=== PATIENT | female | born 1965 | race Caucasian/White ===

== ENCOUNTER 2019-06-28 17:18 | Outpatient (CLI) | payer OTHER, SELFPAY ==
--- NOTE | ~2019-06-28 | XR_ITS ---
EXAMINATION: XR chest 2V 06/28/2019 17:40 INDICATION: Cough and chest pain PROCEDURE: 2 view chest COMPARISON: No prior studies for comparison. FINDINGS: The lungs are clear. The cardiomediastinal silhouette is within normal limits. There are no pleural effusions. There is no pneumothorax suspected. IMPRESSION: 1: NO ACUTE CARDIOPULMONARY DISEASE. Reviewed, dictated and finalized at location A. EY COORDINATOR
== END 2019-06-28 17:19 | disposition home or self-care (01) ==
LOC: ANHIMG 17:27
PROVIDERS: PCP Family Medicine; Visit Provider Family Medicine
DX: R05 Cough (principal); R07.89 Other chest pain
CPT/HCPCS: 71046

== ENCOUNTER 2020-01-04 16:06 | Emergency (ER) | payer OTHER, SELFPAY ==
[2020-01-04 16:16] VITALS: PULSE 86; RESP 20; TEMP 36.5; O2SAT 100
--- NOTE | 2020-01-04 16:35 | ED.FEMALEGU ---
HPI - Female Genitourinary General Chief complaint: Urogenital-Female Stated complaint: uti Time Seen by Provider: 01/04/20 16:16 Source: patient and RN notes reviewed Mode of arrival: ambulatory Limitations: no limitations History of Present Illness HPI Narrative: Patient presents today complaining of a two-week history of intermittent dysuria. She was diagnosed with a UTI on 12/13/2019 by her AIR QUALITY CHEMIST, and placed on 3 days of Macrobid. Patient states the Macrobid caused a yeast infection for which she took 1 dose of fluconazole. States the Macrobid helped improve her symptoms for 2 to 3 days, but then they worsened again. Denies abdominal pain, fever, sweats or chills, back pain. She was notified that her urine culture was susceptible to Macrobid. She has not followed up with her AIR QUALITY CHEMIST when her symptoms returned. She has been occasionally taking Azo, which does help improve the dysuria symptoms. MD elicited complaint: dysuria Related Data Home Medications Medication Instructions Recorded Confirmed L norgest/e.estradiol-e.estrad 1 tablet PO DAILY 04/12/19 04/12/19 0.15 mg-30 mcg (84)/10 mcg(7) tabs,3mos ibuprofen 200 mg tablet 200 mg PO Q6H PRN 04/12/19 04/12/19 cetirizine 10 mg capsule 10 mg PO DAILY 10/22/19 famotidine 20 mg tablet 20 mg PO BID tablet 10/22/19 Allergies Allergy/AdvReac Type Severity Reaction Status Date / Time No Known Allergies Allergy Verified 10/22/19 14:22 Review of Systems Review of Systems: Narrative: CONSTITUTIONAL: Denies body aches, fever, chills, or sweats. EYES: Denies visual changes, redness, or discharge. ENT: Denies rhinorrhea, congestion, sore throat, or otalgia. CARDIOVASCULAR: Denies chest pain, palpitations, or edema. RESPIRATORY: Denies cough or dyspnea. GASTROINTESTINAL: Denies abdominal pain, nausea, vomiting, or diarrhea. GENITOURINARY: Denies hematuria. + Dysuria SKIN: Denies rash, itching, or wounds. MUSCULOSKELETAL: Denies back pain, joint pain, or myalgia. NEUROLOGIC: Denies headache, numbness, tingling, or weakness. PSYCH: Denies depression or anxiety. PMFSH Social History Social History Smoking status: Never smoker Second hand tobacco smoke exposure: No Alcohol intake: current Substance use: never Substance use type: does not use Gender identity (if verbalized by the patient): Female Spiritual care concerns: No Agree to blood products: Yes Comments At time of signature, I have reviewed and agree with nursing past medical, surgical, social and family history unless otherwise noted. Please see nursing chart for further information. There is no relevant family history pertinent to the presenting complaint Exam Narrative: Exam Narrative: GENERAL: Well-appearing, well-nourished, and in no acute distress. HEAD: Normocephalic, atraumatic. EYES: EOMI. No redness or drainage. Conjunctivae normal. ENT: Mucous membranes pink and moist. NECK: Normal AROM. CHEST: No respiratory distress. Clear to auscultation. HEART: Regular rate and rhythm. No murmur appreciated. Normal peripheral pulses. ABDOMEN: Soft, nontender, nondistended, normal active bowel sounds. -CVAT MUSCULOSKELETAL: No bony tenderness. EXTREMITIES: Normal range of motion. No edema. SKIN: Warm, dry, no rash. Capillary refill normal. Normal skin turgor. NEURO: No focal deficits. Alert and oriented x3. Gait steady. PSYCH: Normal affect. No signs of depression or anxiety. Course Vital Signs Vital signs: Vital Signs Temperature 97.7 F 01/04/20 16:16 Pulse Rate 86 01/04/20 16:16 Respiratory Rate 01/04/20 16:16 Pulse Oximetry 100 01/04/20 16:16 Temperature 97.7 F 01/04/20 16:16 Pulse Rate 86 01/04/20 16:16 Respiratory Rate 01/04/20 16:16 Blood Pressure 148/81 H 01/04/20 16:37 Pulse Oximetry 100 01/04/20 16:16 Reviewed. Pt has been instructed to follow up with her PCP regarding her e
[2020-01-04 16:37] VITALS: BP 148/81
== END 2020-01-04 16:44 | disposition home or self-care (01) ==
PROVIDERS: Emergency Provider Nurse Practitioner; PCP Family Medicine
DX: N30.01 Acute cystitis with hematuria (principal)
CPT/HCPCS: 81003; 87086; 87088; 99213; G0463

== ENCOUNTER 2020-02-21 17:05 | Outpatient (CLI) | payer OTHER, SELFPAY ==
--- NOTE | ~2020-02-21 | MM_ITS ---
EXAMINATION: MM screening che BI w celeste HISTORY: Screening TECHNIQUE: Craniocaudal and mediolateral oblique 3-D tomosynthesis images were obtained and synthetic 2-D images were generated. CAD analysis was submitted and interpreted. COMPARISON: Comparison to multiple prior studies sequentially, with oldest reviewed study dated 08/20. BREAST PARENCHYMAL COMPOSITION: The breasts are heterogeneously dense, which may obscure small masses . FINDINGS: There is no evidence of suspicious mass, calcification, or architectural distortion to sugg est malignancy in either breast. There has been no suspicious interval change. IMPRESSION: 1. No mammographic evidence of malignancy. 2. Recommend routine screening mammography in one year. BI-RADS Category 1: Negative Reviewed, dictated and finalized at location A.
== END 2020-02-21 17:06 | disposition home or self-care (01) ==
LOC: ANHIMG 17:09
PROVIDERS: PCP Family Medicine; Visit Provider Obstetrics & Gynecology Gynecology
DX: Z12.31 Encounter for screening mammogram for malignant neoplasm of breast (principal)
CPT/HCPCS: 77063; 77067

== ENCOUNTER 2020-03-02 15:13 | Emergency (ER) | payer OTHER, SELFPAY ==
[2020-03-02 15:21] VITALS: BP 146/83; PULSE 92; RESP 18; TEMP 36.8; O2SAT 100
--- NOTE | 2020-03-02 15:42 | ED.GENADULT ---
HPI - General Adult General Chief complaint: Urogenital-Female Stated complaint: uti Time Seen by Provider: 03/02/20 15:42 Source: patient and RN notes reviewed Mode of arrival: ambulatory Limitations: no limitations History of Present Illness HPI narrative: 54-year-old female presents with urinary complaints for 1 day. Dysuria consist of burning, frequency, and urgency. Ibuprofen with no relief. Denies fever or chills. No significant pelvic pain. No vaginal discharge.? No concerns for STDs. Exacerbating factors urinating.? Denies hematuria or vaginal bleeding. Denies being , LMP 01/26 due to birthcontrol.? No flank pain. Denies nausea, vomiting, and abdominal pain.? Tolerating liquids well.? Remains active. The patient reports she have not been diagnosed with COVID-19. The patient reports she is not waiting for the results of a COVID-19 lab test. The patient reports she do not have weakness or fatigue. The patient reports she do not have a new or worsening cough or shortness of breath. Denies chest pain. The patient reports she do not have any rhinorrhea, congestion, sore throat, loss of taste, and diarrhea. Denies recent traveling. Denies concerns for COVID-19 or exposures been home with limited outdoor exposure except for essential household needs, work, and return home. At this time, patient is not suspected of having COVID-19. Some parts of this dictation were generated by voice recognition software and may contain typographical and/or grammatical inaccuracies. Related Data Home Medications Medication Instructions Recorded Confirmed L norgest/E estradiol-E estrad 1 tablet PO DAILY 04/12/19 03/02/20 0.15 mg-30 mcg (84)/10 mcg(7) tabs,3mos cetirizine 10 mg capsule 10 mg PO DAILY 10/22/19 03/02/20 Allergies Allergy/AdvReac Type Severity Reaction Status Date / Time No Known Allergies Allergy Verified 03/02/20 15:18 Review of Systems Review of Systems: Narrative: CONSTITUTIONAL: Denies fever, chills, sweats. EYES: Denies visual changes, redness, discharge. ENT: Denies rhinorrhea, congestion, sore throat, otalgia. CARDIOVASCULAR: Denies chest pain, palpitations, edema. RESPIRATORY: Denies dyspnea, wheezing, cough. GASTROINTESTINAL: Denies abdominal pain, nausea, vomiting, diarrhea. GENITOURINARY: Complains of dysuria (burning, frequency, and urgency). Denies hematuria, abnormal discharge. SKIN: Denies rash or itching. MUSCULOSKELETAL: Denies acute back pain, joint pain, or myalgia. NEUROLOGIC: Denies numbness or focal weakness. PSYCHIATRIC: Denies anxiety or depression. All systems reviewed & are unremarkable except as noted in HPI and below. [facility] Past Medical History Medical History (Updated 03/02/20 @ 16:15 by RONNIE Forde) Allergic rhinitis delivery delivered GERD (gastroesophageal reflux disease) Menopause syndrome Reactive airway disease Surgical History Surgical History History of History of tonsillectomy Family History Family History Mother Carcinoma of colon Father CHF (congestive heart failure) Hypertension Father Hypertension Mother Carcinoma of colon Sibling Family history of malignant neoplasm of kidney Social History Social History (Updated 03/02/20 @ 16:16 by RONNIE Forde) Smoking status: Former smoker Tobacco type: cigarettes Second hand tobacco smoke exposure: No Smoking end date: 05/09/91 Alcohol intake: current Substance use: never Substance use type: does not use Living arrangements: with family Occupation/Education: occupation Gender identity (if verbalized by the patient): Female Sexual Orientation (if Verbalized by the Patient): Straight or Heterosexual Spiritual care concerns: No Agree to blood products: Yes Comments At time of signature, agree with nurse pas
== END 2020-03-02 16:05 | disposition home or self-care (01) ==
PROVIDERS: Emergency Provider Nurse Practitioner Family; PCP Family Medicine
DX: R30.0 Dysuria (principal); Z87.891 Personal history of nicotine dependence; K21.9 Gastro-esophageal reflux disease without esophagitis
CPT/HCPCS: 81003; 87077; 87086; 87088; 87186; 99213; G0463

== ENCOUNTER 2021-02-25 15:47 | Outpatient (CLI) | payer OTHER, SELFPAY ==
--- NOTE | ~2021-02-25 | MM_ITS ---
EXAMINATION: MM screening che BI w celeste HISTORY: Screening mammogram TECHNIQUE: Craniocaudal and mediolateral oblique 3-D tomosynthesis images were obtained and synthetic 2-D images were generated. CAD analysis was submitted and interpreted. COMPARISON: 02/21/2020 bilateral screening mammogram 01/29/2019 diagnostic right mammogram 01/17/2019 bilateral digital screening mammogram BREAST PARENCHYMAL COMPOSITION: The breasts are heterogeneously dense, which may obscure small masses . FINDINGS: Occasional benign calcifications are again noted. There is no evidence of suspicious mass, calcification, or architectural distortion to suggest malignancy in either breast. There has been no suspicious interval change. IMPRESSION: 1. No mammographic evidence of malignancy. 2. Recommend routine screening mammography in one year. BI-RADS Category 2: Benign finding(s). Reviewed, dictated and finalized at location A.
== END 2021-02-25 15:48 | disposition home or self-care (01) ==
PROVIDERS: PCP Family Medicine; Visit Provider Obstetrics & Gynecology
DX: Z12.31 Encounter for screening mammogram for malignant neoplasm of breast (principal)
CPT/HCPCS: 77063; 77067

== ENCOUNTER → 2021-07-25 08:43 | Outpatient (CLI) | payer OTHER, SELFPAY ==
--- NOTE | ~2021-07-25 | US_ITS ---
US abdomen complete EXAMINATION: US Abdomen Complete INDICATION: Abnormal liver function tests PROCEDURE: Realtime High Resolution abdomen ultrasound. COMPARISON: No prior studies for comparison FINDINGS: There are gallstones. No pericholecystic fluid. Common bile duct measures 4 mm. Liver echotexture is increased, consistent with fatty infiltration.. Pancreas within normal limits. Pancreatic tail is obscured by bowel gas. Spleen is unremarkeable. Renal echotexture is within norm al limits bilaterally without hydronephrosis, contour deforming mass or renal stone. Right kidney enedelia sures 10.3 cm. Left kidney measures 11.1 cm. Visualized aspects of the aorta and IVC are within normal limits. Portal vein is patent. No sonograph ic Bhardwaj's sign indicated by the technologist. IMPRESSION: 1: Cholelithiasis. 2: Hepatic steatosis. Reviewed, dictated and finalized at location A.
== END ==
PROVIDERS: PCP Family Medicine; Visit Provider Nurse Practitioner
DX: R74.8 Abnormal levels of other serum enzymes (principal); K80.20 Calculus of gallbladder without cholecystitis without obstruction; K76.0 Fatty (change of) liver, not elsewhere classified
CPT/HCPCS: 76700

== ENCOUNTER 2022-01-19 08:59 | Outpatient (CLI) | payer OTHER, SELFPAY ==
[2022-01-19 18:40] LABS: Basophils Percent Auto 0.5 % (0.2-1.2); Eosinophils Absolute Auto 0.2 K/mm3 (0-0.3); Eosinophils Percent Auto 2.5 % (0-4.4); Hematocrit 44.5 % (37.0-47.0); Hemoglobin 14.2 g/dL (12.0-15.0); Immature Granulocyte Absolute 0.01 K/mm3 (0.00-0.031); Immature Granulocyte Percent A 0.2 % (0-0.5); Lymphocytes Absolute Auto 2.03 K/mm3 (0.9-3.2); Lymphocytes Percent Auto 33.6 % (18.3-44.2); Mean Corpuscular HGB Conc 31.9 g/dl (32-36); Mean Corpuscular Hemoglobin 32.5 pg (26-34); Mean Corpuscular Volume 101.8 fl (80-100); Mean Platelet Volume 10.6 fl (7.4-10.4); Monocytes Absolute Auto 0.7 K/mm3 (0.1-0.6); Monocytes Percent Auto 11.6 % (2.6-8.5); Neutrophils Absolute Auto 3.1 K/mm3 (1.3-6.7); Neutrophils Percent Auto 51.6 % (45.5-73.1); Platelet Count Result 318 k/mm3 (150-375); Red Blood Count 4.37 M/mm3 (4.2-5.4); Red Cell Distribution Width 12.6 % (11.5-14.5); White Blood Count 6.1 K/mm3 (4.5-10.0)
[2022-01-19 19:05] LABS: Alanine Aminotransferase 56 U/L (6-35); Albumin Level 4.2 g/dL (3.5-5.1); Alkaline Phosphatase 92 U/L (38-126); Anion Gap 14 mmol/L (8-16); Aspartate Amino Transferase 54 U/L (14-36); Bilirubin,Total 0.4 mg/dL (0.2-1.3); Blood Urea Nitrogen 15 mg/dL (7-17); Calcium 8.8 mg/dL (8.4-10.2); Carbon Dioxide 28 mmol/L (22-30); Chloride 102 mmol/L (98-107); Cholesterol 172 mg/dL (0-200); Estimated Glomerular Filt Rate > 60; Glucose 82 mg/dL (65-110); HDL Direct 63 mg/dL; Potassium 3.3 mmol/L (3.4-5.0); Sodium 144 mmol/L (137-145); Triglycerides 86 mg/dL (<150)
[2022-01-19 19:16] LABS: LDL Cholesterol Direct 75 mg/dL
== END 2022-01-19 09:00 | disposition home or self-care (01) ==
LOC: ANHGOSHLAB 09:01
PROVIDERS: PCP Family Medicine; Visit Provider Nurse Practitioner Family
DX: E03.9 Hypothyroidism, unspecified (principal); I10 Essential (primary) hypertension; E78.5 Hyperlipidemia, unspecified
CPT/HCPCS: 36415; 80053; 80061; 84443; 85025

== ENCOUNTER → 2022-03-31 08:44 | Outpatient (CLI) | payer OTHER, SELFPAY ==
--- NOTE | ~2022-03-31 | MM_ITS ---
EXAMINATION: MM screening [facility] BI w celeste HISTORY: Screening mammogram TECHNIQUE: Craniocaudal and mediolateral oblique 3-D tomosynthesis images were obtained and synthetic 2-D images were generated. CAD analysis was submitted and interpreted. COMPARISON: 02/25/2021, 02/21/2020 bilateral screening mammogram examinations 01/29/2019 diagnostic right mammogram 10/24/2017 [facility] from bilateral screening mammogram BREAST PARENCHYMAL COMPOSITION: There are scattered areas of fibroglandular density. FINDINGS: Cluster grouped microcalcifications are noted at mid to posterior depth in the upper inner right breast. Diagnostic right mammogram with magnification views and ultrasound examination are abel mmended. Minimal benign calcification of the breasts is noted otherwise. Otherwise there is no evidence of suspicious mass, calcification, or architectural distortion to sug gest malignancy in either breast. There has been no other suspicious interval change. IMPRESSION: 1. Cluster grouped microcalcifications at mid to posterior depth in the upper inner right breast 2. Diagnostic right mammogram and right breast ultrasound examination are recommended BI-RADS Category 0: Incomplete: Needs additional imaging evaluation. Reviewed, dictated and finalized at location A. EW COORDINATOR IMPRESSION: 1. Cluster grouped microcalcifications at mid to posterior depth in the upper i nner right breast 2. Diagnostic right mammogram and right breast ultrasound examination are recom mended BI-RADS Category 0: Incomplete: Needs additional imaging evaluation.
== END ==
PROVIDERS: PCP Family Medicine; Visit Provider Nurse Practitioner Family
DX: Z12.31 Encounter for screening mammogram for malignant neoplasm of breast (principal); R92.8 Other abnormal and inconclusive findings on diagnostic imaging of breast
CPT/HCPCS: 77063; 77067

== ENCOUNTER → 2022-04-22 07:35 | Outpatient (CLI) | payer OTHER, SELFPAY ==
--- NOTE | ~2022-04-22 | MM_ITS ---
EXAMINATION: MM diagnostic mammo unilat RT HISTORY: Follow-up right breast calcifications TECHNIQUE: Additional 3-D tomosynthesis images of the right breast were performed and synthetic 2-D i mages were generated. CAD analysis was submitted and interpreted. COMPARISON: Comparison to multiple prior studies sequentially, with oldest reviewed study dated 01/29. BREAST PARENCHYMAL COMPOSITION: The breasts are heterogeneously dense, which may obscure small masses . FINDINGS: The calcifications in the upper inner quadrant of the right breast appears stable dating ba ck to 01/29/2019. These calcifications appear to layer on the medial lateral view as seen on the prior examination, consistent with benign milk of calcium. No suspicious abnormalities are identified. IMPRESSION: 1. No evidence for malignancy in the right breast. Benign findings. 2. Routine yearly screening mammogram and regular clinical breast examination are recommended. BI-RADS Category 2: Benign finding(s). Reviewed, dictated and finalized at location B. GER PROCESS IMPROVEMENT IMPRESSION: 1. No evidence for malignancy in the right breast. Benign findings. 2. Routine yearly screening mammogram and regular clinical breast examination a re recommended. BI-RADS Category 2: Benign finding(s).
== END ==
PROVIDERS: PCP Family Medicine; Visit Provider Family Medicine
DX: R92.8 Other abnormal and inconclusive findings on diagnostic imaging of breast (principal)
CPT/HCPCS: 77065

== ENCOUNTER 2022-07-20 08:49 | Outpatient (CLI) | payer OTHER, SELFPAY ==
[2022-07-20 12:14] LABS: Kit Draw Collected
== END 2022-07-20 08:50 | disposition home or self-care (01) ==
LOC: ANHGOSHLAB 08:50
PROVIDERS: PCP Family Medicine; Visit Provider Nurse Practitioner Family
DX: E03.9 Hypothyroidism, unspecified (principal); R74.8 Abnormal levels of other serum enzymes
CPT/HCPCS: 36415

== ENCOUNTER 2023-01-25 08:49 | Outpatient (CLI) | payer OTHER, SELFPAY ==
[2023-01-25 17:02] LABS: Alanine Aminotransferase 45 U/L (6-35); Albumin Level 4.2 g/dL (3.5-5.1); Alkaline Phosphatase 116 U/L (38-126); Anion Gap 5 mmol/L (8-16); Aspartate Amino Transferase 43 U/L (14-36); Bilirubin,Total 0.7 mg/dL (0.2-1.3); Blood Urea Nitrogen 16 mg/dL (7-17); Calcium 8.8 mg/dL (8.4-10.2); Carbon Dioxide 29 mmol/L (22-30); Chloride 104 mmol/L (98-107); Estimated Glomerular Filt Rate > 60; Glucose 65 mg/dL (65-110); Potassium 3.7 mmol/L (3.4-5.0); Sodium 138 mmol/L (137-145)
== END 2023-01-25 08:50 | disposition home or self-care (01) ==
LOC: ANHGOSHLAB 08:51
PROVIDERS: PCP Family Medicine; Visit Provider Family Medicine
DX: E78.5 Hyperlipidemia, unspecified (principal); E03.9 Hypothyroidism, unspecified; Z79.899 Other long term (current) drug therapy
CPT/HCPCS: 36415; 80053; 84443

== ENCOUNTER 2023-04-15 07:50 | Outpatient (CLI) | payer OTHER, SELFPAY ==
--- NOTE | ~2023-04-15 | MM_ITS ---
EXAMINATION: MM screening che BI w celeste HISTORY: Screening mammogram TECHNIQUE: Craniocaudal and mediolateral oblique 3-D tomosynthesis images were obtained and synthetic 2-D images were generated. CAD analysis was submitted and interpreted. COMPARISON: 04/22/2022, 03/31/2022, 02/25/2021, 02/21/2020 BREAST PARENCHYMAL COMPOSITION: The breasts are heterogeneously dense, which may obscure small masses . FINDINGS: Scattered benign-appearing calcifications are present. No suspicious mass, calcification, o r architectural distortion are identified in either breast to suggest malignancy. There has been no s uspicious interval change. IMPRESSION: 1. No mammographic evidence of malignancy. 2. Recommend routine screening mammography in one year. BI-RADS Category 2: Benign finding(s). Reviewed, dictated and finalized at location A. NTER MACHINE JOINER
== END 2023-04-15 07:51 | disposition home or self-care (01) ==
LOC: ANHIMG 07:52
PROVIDERS: PCP Family Medicine; Visit Provider Obstetrics & Gynecology
DX: Z12.31 Encounter for screening mammogram for malignant neoplasm of breast (principal)
CPT/HCPCS: 77063; 77067

== ENCOUNTER 2023-07-25 08:20 | Outpatient (CLI) | payer OTHER, SELFPAY ==
[2023-07-25 12:50] LABS: Basophils Percent Auto 0.4 % (0.2-1.2); Eosinophils Absolute Auto 0.1 K/mm3 (0-0.3); Hematocrit 46.2 % (37.0-47.0); Hemoglobin 14.7 g/dL (12.0-15.0); Immature Granulocyte Absolute 0.01 K/mm3 (0.00-0.031); Immature Granulocyte Percent A 0.2 % (0-0.5); Lymphocytes Percent Auto 36.7 % (18.3-44.2); Mean Corpuscular HGB Conc 31.8 g/dl (32-36); Mean Corpuscular Hemoglobin 32.5 pg (26-34); Mean Corpuscular Volume 102.2 fl (80-100); Mean Platelet Volume 10.2 fl (7.4-10.4); Monocytes Absolute Auto 0.5 K/mm3 (0.1-0.6); Monocytes Percent Auto 9.6 % (2.6-8.5); Neutrophils Absolute Auto 2.5 K/mm3 (1.3-6.7); Neutrophils Percent Auto 51.1 % (45.5-73.1); Platelet Count Result 317 k/mm3 (150-375); Red Blood Count 4.52 M/mm3 (4.2-5.4); Red Cell Distribution Width 12.7 % (11.5-14.5); White Blood Count 4.9 K/mm3 (4.5-10.0)
[2023-07-25 13:19] LABS: Alanine Aminotransferase 86 U/L (6-35); Albumin Level 4.1 g/dL (3.5-5.1); Alkaline Phosphatase 121 U/L (38-126); Anion Gap 4 mmol/L (8-16); Aspartate Amino Transferase 107 U/L (14-36); Bilirubin,Total 0.4 mg/dL (0.2-1.3); Blood Urea Nitrogen 19 mg/dL (7-17); Calcium 9.1 mg/dL (8.4-10.2); Carbon Dioxide 30 mmol/L (22-30); Chloride 107 mmol/L (98-107); Cholesterol 151 mg/dL (0-200); Estimated Glomerular Filt Rate > 60; Glucose 84 mg/dL (65-110); HDL Direct 65 mg/dL; Potassium 3.7 mmol/L (3.4-5.0); Sodium 141 mmol/L (137-145); Triglycerides 70 mg/dL (<150)
[2023-07-25 14:03] LABS: LDL Cholesterol Direct 71 mg/dL
[2023-07-28 23:15] LABS: Vitamin D 1,25 (OH)2 Total 32 pg/mL (18-72); Vitamin D2 1,25 (OH)2 <8 pg/mL; Vitamin D3 1,25 (OH)2 32 pg/mL
== END 2023-07-25 08:21 | disposition home or self-care (01) ==
LOC: ANHGOSHLAB 08:21
PROVIDERS: PCP Family Medicine; Visit Provider Nurse Practitioner Family
DX: E55.9 Vitamin D deficiency, unspecified (principal); I10 Essential (primary) hypertension
CPT/HCPCS: 36415; 80053; 80061; 82652; 84443; 85025

== ENCOUNTER 2023-10-20 16:03 | Outpatient (CLI) | payer OTHER, SELFPAY ==
[2023-10-20 19:25] LABS: Alanine Aminotransferase 41 U/L (6-35); Albumin Level 3.9 g/dL (3.5-5.1); Alkaline Phosphatase 127 U/L (38-126); Anion Gap 2 mmol/L (4-12); Aspartate Amino Transferase 38 U/L (14-36); Bilirubin,Total 0.4 mg/dL (0.2-1.3); Blood Urea Nitrogen 13 mg/dL (7-17); Carbon Dioxide 31 mmol/L (22-30); Chloride 107 mmol/L (98-107); Estimated Glomerular Filt Rate > 60; Glucose 83 mg/dL (65-110); Potassium 4.2 mmol/L (3.4-5.0); Sodium 140 mmol/L (137-145)
== END 2023-10-20 16:04 | disposition home or self-care (01) ==
LOC: ANHGOSHLAB 16:04
PROVIDERS: PCP Family Medicine; Visit Provider Nurse Practitioner Family
DX: R74.8 Abnormal levels of other serum enzymes (principal); K76.0 Fatty (change of) liver, not elsewhere classified
CPT/HCPCS: 36415; 80053

== ENCOUNTER 2024-01-23 08:29 | Outpatient (CLI) | payer OTHER, SELFPAY ==
[2024-01-23 13:14] LABS: Alanine Aminotransferase 42 U/L (6-35); Albumin Level 4.1 g/dL (3.5-5.1); Alkaline Phosphatase 113 U/L (38-126); Anion Gap 8 mmol/L (4-12); Aspartate Amino Transferase 75 U/L (14-36); Bilirubin,Total 0.4 mg/dL (0.2-1.3); Blood Urea Nitrogen 22 mg/dL (7-17); Calcium 9.3 mg/dL (8.4-10.2); Carbon Dioxide 30 mmol/L (22-30); Chloride 101 mmol/L (98-107); Estimated Glomerular Filt Rate > 60; Glucose 78 mg/dL (65-110); Potassium 3.8 mmol/L (3.4-5.0); Sodium 139 mmol/L (137-145)
[2024-01-23 13:55] LABS: Free T4 Free Thyroxine 1.08 ng/mL (0.78-2.19)
== END 2024-01-23 08:30 | disposition home or self-care (01) ==
LOC: ANHGOSHLAB 08:31
PROVIDERS: PCP Family Medicine; Visit Provider Nurse Practitioner Family
DX: R74.8 Abnormal levels of other serum enzymes (principal); E03.9 Hypothyroidism, unspecified
CPT/HCPCS: 36415; 80053; 84439; 84443

== ENCOUNTER 2024-05-29 16:15 | Outpatient (CLI) | payer OTHER, SELFPAY ==
--- NOTE | ~2024-05-29 | MM_ITS ---
EXAMINATION: MM screening [facility] BI w celeste HISTORY: Screening TECHNIQUE: Craniocaudal and mediolateral oblique 3-D tomosynthesis images were obtained and synthetic 2-D images were generated. CAD analysis was submitted and interpreted. COMPARISON: Comparison to multiple prior studies sequentially, with oldest reviewed study dated 01/29. BREAST PARENCHYMAL COMPOSITION: Not dense: There are scattered areas of fibroglandular density. FINDINGS: There is no evidence of suspicious mass, calcification, or architectural distortion to sugg est malignancy in either breast. There has been no suspicious interval change. IMPRESSION: 1. No mammographic evidence of malignancy. 2. Recommend routine screening mammography in one year. BI-RADS Category 1: Negative Reviewed, dictated and finalized at location A. TYPER
--- OUTSIDE RECORDS SUMMARY | 2024-05-31 20:01 | XMS_ITS | Clinical Summary ---
Author Organization [facility] Address [address] [place] [address] Phone Care Team Providers Care Web Analytics Developer Name Role Phone Barbara Birch MD Unavailable Unavailable Allergies No known active allergies Medications AMETHIA 0.15-0.03 &0.01 MG Tablet TK 1 T PO QD 1 8 Active SUMATRIPTAN NA by Nasal route. Active Multiple Vitamins-Minerals (MULTIVITAMIN PO) Take by mouth. Active ofloxacin (OCUFLOX) 0.3 % SolutionIndications :Acute conjunctivitis of both eyes, unspecified acute conjunctivitis type Place 1 Drop in affected eye(s) 4 times daily. 5 mL 9 Active Immunizations Immunization Administration Dates Next Due TD VACCINE 12/01/2006 Family History Medical History Relation Name Comments No Known Problems Father Colon Cancer Mother Relation Name Status Comments Father Mother Social History Tobacco Use Types Packs/Day Years Used Date Smoking Tobacco: Former Smokeless Tobacco: Never Alcohol Use Standard Drinks/Week Comments No 0 (1 standard drink = 0.6 oz pur e alcohol) PHQ-2 Answer Date Recorded PHQ-2 Score 0 01/20/2019 Comments No Sex and Gender Information Value Date Recorded Sex Assigned at Not on file Legal Sex Female 11:52 PM CDT Gender Identity Not on file Sexual Orientation Not on file Last Filed Vital Signs Vital Sign Reading Time Taken Comments Blood Pressure 138/79 06/12/2018 9:47 AM GUARD ENTRANCE REGISTRAR Pulse 112 06/12/2018 9:47 AM GUARD ENTRANCE REGISTRAR Temperature 36.6 ??C (97.8 ??F) 06/12/2018 9:47 AM CS T Respiratory Rate 16 06/12/2018 9:47 AM GUARD ENTRANCE REGISTRAR Oxygen Saturation 99% 06/12/2018 9:47 AM GUARD ENTRANCE REGISTRAR Inhaled Oxygen Concentration - - Weight 76.7 kg (169 lb) 06/12/2018 9:47 AM GUARD ENTRANCE REGISTRAR Height 165.1 cm (5' 5 ) 06/12/2018 9:47 AM GUARD ENTRANCE REGISTRAR Body Mass Index 28.12 06/12/2018 9:47 AM GUARD ENTRANCE REGISTRAR Plan of Treatment Health Maintenance Due Date Last Done Comments Hepatitis C Virus (HCV) Screening 1967 TdaP Immunization 1967 Hepatitis B Immunization (1 of 3 - 19+ 3-dose series) 1986 HPV/Cotest 1997 Cologuard 2017 Immunochemical Fecal Occult Blood 2017 Pneumococcal Immunization (5 0+ years) (1 of 1 - PCV) 2017 Zoster Immunization (1 of 2) 2017 Mammogram 10/25/2019 10/24/2017 Cervical Cancer Screening (CCS) 09/27/2020 Pap Smear 09/27/2020 09/27/2017 Influenza Immunization (#1) 2024 SARS-COV-2 Immunization ( season) 2024 03/20/2021, 07/11/2020 Colonoscopy 04/06/2028 04/06/2018 Colorectal Cancer Screening 04/06/2028 Respiratory Syncytial Virus (RSV) Immunization (Adult) (1 - 1-dose 75+ series) 2042 04/06/2018 Meningococcal Immunization (ACWY) Aged Out No longer eligible b ased on patient's age to complete this topic Pneumococcal Immunization Combined Aged Out No longer eligible b ased on patient's age to complete this topic Rotavirus Immunization Aged Out No lo nger eligible based on patient's age to complete this topic Procedures Procedure Name Priority Date/Time Associated Diagnosis Comments LU SCREENING BILATERAL DIGI CHENG W CAD Routine 10/24/2017 PATHOLOGY CYTOLOGY VEHICLE MAINTENANCE TECHNICIAN Routine 09/27/2017 from Last 3 Months or Most Recently Relevant to Health Maintenance Results * LU SCREENING BILATERAL DIGITAL W CAD (10/24/2017) Anatomical Region Laterality Modality breast Bilateral Mammography Celena Montana MD IMG MAMMO ORDERABLES Final Res ult * PATHOLOGY CYTOLOGY VEHICLE MAINTENANCE TECHNICIAN (09/27/2017) Specimen of unknown material (specimen) us Barbara Birch MD PATHOLOGY/CYTOLOGY ORDERABLES Final Result from Last 3 Months or Most Recently Relevant to Health Maintenance Care Teams Web Analytics Developer Relationship Specialty Start Date End Date Barbara Birch MD Consulting Physician Obstetrics & Gynecology 06/12/18
--- OUTSIDE RECORDS SUMMARY | 2024-05-31 20:01 | XMS_ITS | Continuity of Care Document ---
Author Organization [facility] Address [address] [facility] [address] [place] [address] Phone Care Team Providers Care Milk Hauler Name Role Phone Yomi Zamora MD Unavailable Unavailable Medications Medication Instructions Dosage Effective Dates (start - stop) Status Comments Zanaflex 4 mg tablet take 1 tablet by or al route every night at bedtime - Active Advance Directives Directive Yes / No Effective Date File Name No Information Encounters Encounter Description Practice Location Reason(s) For Visit Diagnoses Date Provider Providers Copied on Encounter [facility], [address], [facility], [phone] [facility] [address] No Information 4 Noah Celaya. [address] [place] [address], [id number] . tel: [phone] [facility], [address] [place] [address], [facility], tel:[phone] [facility] [address] No Information 3 Noah Celaya. [address] [place] [address], [id number] . tel: [phone] Family History Family Member Type Diagnosis Age At Onset No Information Payers Payer name Insurance type Covered libertarian ID Authoriza tion(s) No Information Social History [...]
== END 2024-05-29 16:16 | disposition home or self-care (01) ==
PROVIDERS: PCP Family Medicine; Visit Provider Nurse Practitioner Family
DX: Z12.31 Encounter for screening mammogram for malignant neoplasm of breast (principal)
CPT/HCPCS: 77063; 77067

== ENCOUNTER 2024-08-13 08:37 | Outpatient (CLI) | payer OTHER, SELFPAY ==
--- OUTSIDE RECORDS SUMMARY | 2024-08-13 08:58 | XMS_ITS | Continuity of Care Document ---
Author Organization [facility] Address [address] [facility] [address] [place] [address] Phone Care Team Providers Care Dishroom Attendant Name Role Phone Yomi Zamora MD Unavailable Unavailable Medications Medication Instructions Dosage Effective Dates (start - stop) Status Comments Zanaflex 4 mg tablet take 1 tablet by or al route every night at bedtime - Active Advance Directives Directive Yes / No Effective Date File Name No Information Encounters Encounter Description Practice Location Reason(s) For Visit Diagnoses Date Provider Providers Copied on Encounter [facility], [address], [facility], [phone] [facility] [address] No Information 4 Noah Celaya. [address] [place] [address], [id number] . tel: [phone] [facility], [address] [place] [address], [facility], tel:[phone] [facility] [address] No Information 3 Noah Celaya. [address] [place] [address], [id number] . tel: [phone] Family History Family Member Type Diagnosis Age [...]
--- OUTSIDE RECORDS SUMMARY | 2024-08-13 08:58 | XMS_ITS | Clinical Summary ---
Author Organization [facility] Address [address] [place] [address] Phone Care Team Providers Care Scene Shifter Name Role Phone Barbara Birch MD Unavailable [...] Comments Blood Pressure 138/79 06/12/2018 9:47 AM COMMERCIAL LITIGATION ASSOCIATE Pulse 112 06/12/2018 9:47 AM COMMERCIAL LITIGATION ASSOCIATE Temperature 36.6 C (97.8 F) 06/12/2018 9:47 AM COMMERCIAL LITIGATION ASSOCIATE Respiratory Rate 16 06/12/2018 9:47 AM COMMERCIAL LITIGATION ASSOCIATE Oxygen Saturation 99% 06/12/2018 9:47 AM COMMERCIAL LITIGATION ASSOCIATE Inhaled Oxygen Concentration - - Weight 76.7 kg (169 lb) 06/12/2018 9:47 AM COMMERCIAL LITIGATION ASSOCIATE Height 165.1 cm (5' 5 ) 06/12/2018 9:47 AM COMMERCIAL LITIGATION ASSOCIATE Body Mass Index 28.12 06/12/2018 9:47 AM COMMERCIAL LITIGATION ASSOCIATE Plan of Treatment Health Maintenance Due Date Last Done Comments Hepatitis C Virus (HCV) Screening 1965 TdaP Immunization 1965 Hepatitis B Immunization (1 of 3 - 19+ 3-dose series) 1986 Cologuard 2017 Immunochemical Fecal Occult Blood 2017 Pneumococcal Immunization (5 0+ years) (1 of 1 - PCV) 2017 Zoster Immunization (1 of 2) 2017 Influenza Immunization (#1) 2024 SARS-COV-2 Immunization ( - season) 2024 03/20/2021, 07/11/2020 Colonoscopy 04/06/2028 04/06/2018 Colorectal Cancer Screening 04/06/2028 Respiratory Syncytial Virus (RSV) Immunization (Adult) (1 - 1-dose 75+ series) 2042 04/06/2018 Cervical Cancer Screening (CCS) Discontinued Pap Smear Discontinued 09/27/2017 Mammogram Discontinued 10/24/2017 HPV/Cotest Discontinued Meningococcal Immunization (ACWY) Aged Out No longer eligible based on patient's age to complete this topic Rotavirus Immunization Aged Out No lo nger eligible based on patient's age to complete this topic Procedures Procedure Name Priority Date/Time Associated Diagnosis Comments LU SCREENING BILATERAL DIGI CHENG W CAD Routine 10/24/2017 PATHOLOGY CYTOLOGY DOUBLE NEEDLE OPERATOR LOCKSTITCH Routine 09/27/2017 from Last 3 Months or Most Recently Relevant to Health Maintenance Results * LU SCREENING BILATERAL DIGITAL W CAD (10/24/2017) Anatomical Region Laterality Modality breast Bilateral Mammography Celena Montana MD IMG MAMMO ORDERABLES Final Res ult * PATHOLOGY CYTOLOGY DOUBLE NEEDLE OPERATOR LOCKSTITCH (09/27/2017) Specimen of unknown material (specimen) us Barbara Birch MD PATHOLOGY/CYTOLOGY ORDERABLES Final Result from Last 3 Months or Most Recently Relevant to Health Maintenance Care Teams Scene Shifter Relationship Specialty Start Date End Date Barbara Birch MD Consulting Physician Obstetrics & Gynecology 06/12/18
[2024-08-13 11:57] LABS: Basophils Percent Auto 0.7 % (0.2-1.2); Eosinophils Absolute Auto 0.2 K/mm3 (0-0.3); Eosinophils Percent Auto 3.2 % (0-4.4); Hematocrit 46.7 % (37.0-47.0); Hemoglobin 14.8 g/dL (12.0-15.0); Immature Granulocyte Absolute 0.01 K/mm3 (0.00-0.031); Immature Granulocyte Percent A 0.2 % (0-0.5); Lymphocytes Absolute Auto 2.15 K/mm3 (0.9-3.2); Lymphocytes Percent Auto 37.9 % (18.3-44.2); Mean Corpuscular HGB Conc 31.7 g/dl (32-36); Mean Corpuscular Hemoglobin 32.6 pg (26-34); Mean Corpuscular Volume 102.9 fl (80-100); Mean Platelet Volume 10.9 fl (7.4-10.4); Monocytes Absolute Auto 0.5 K/mm3 (0.1-0.6); Monocytes Percent Auto 9.2 % (2.6-8.5); Neutrophils Absolute Auto 2.8 K/mm3 (1.3-6.7); Neutrophils Percent Auto 48.8 % (45.5-73.1); Platelet Count Result 317 k/mm3 (150-375); Red Blood Count 4.54 M/mm3 (4.2-5.4); Red Cell Distribution Width 12.4 % (11.5-14.5); White Blood Count 5.7 K/mm3 (4.5-10.0)
[2024-08-13 13:05] LABS: Vitamin D 25 Hydroxy 40.1 ng/mL
[2024-08-13 13:19] LABS: Alanine Aminotransferase 36 U/L (6-35); Albumin Level 4.3 g/dL (3.5-5.1); Alkaline Phosphatase 110 U/L (38-126); Anion Gap 9 mmol/L (4-12); Aspartate Amino Transferase 46 U/L (14-36); Bilirubin,Total 0.5 mg/dL (0.2-1.3); Blood Urea Nitrogen 19 mg/dL (7-17); Calcium 9.1 mg/dL (8.4-10.2); Carbon Dioxide 27 mmol/L (22-30); Chloride 104 mmol/L (98-107); Cholesterol 159 mg/dL (0-200); Estimated Glomerular Filt Rate > 60; Glucose 81 mg/dL (65-110); HDL Direct 64 mg/dL; LDL Cholesterol Direct 66 mg/dL; Potassium 4.2 mmol/L (3.4-5.0); Sodium 140 mmol/L (137-145); Triglycerides 92 mg/dL (<150)
== END 2024-08-13 08:38 | disposition home or self-care (01) ==
LOC: ANHGOSHLAB 08:37
PROVIDERS: PCP Family Medicine; Visit Provider Nurse Practitioner Family
DX: E78.5 Hyperlipidemia, unspecified (principal); E03.9 Hypothyroidism, unspecified; E55.9 Vitamin D deficiency, unspecified; I10 Essential (primary) hypertension
CPT/HCPCS: 36415; 80053; 80061; 82306; 84439; 84443; 85025

== ENCOUNTER 2024-11-15 08:15 | Outpatient (CLI) | payer OTHER, SELFPAY ==
--- NOTE | ~2024-11-15 | MMUS_ITS ---
EXAMINATION: MM diagnostic che RT w celeste, US breast RT limited HISTORY: Right breast lump TECHNIQUE: 3-D tomosynthesis images of the right breast were performed and synthetic 2-D images were generated. CAD analysis was submitted and interpreted. High resolution limited right breast ultrasoun d was performed. COMPARISON: None BREAST PARENCHYMAL COMPOSITION:Not Dense. There are scattered areas of fibroglandular density. FINDINGS: MAMMOGRAPHIC FINDINGS: Parenchymal pattern of the right breast is unremarkable. No suspicious mass lesion or distortion seen . No suspicious microcalcification. ULTRASOUND: At the 4:00-5:00 position right breast, 6 cm from nipple, there is a elongated hypoechoic structure w ithin the dermis, most compatible with a probable sebaceous cyst, measuring up to 19 x 10 x 3 mm in e xtent. IMPRESSION: No evidence for malignancy. Findings compatible with sebaceous cyst at the 4:00-5:00 position right breast, as detailed above. BI-RADS Category 2: Benign finding(s). Reviewed, dictated and finalized at location . IMPRESSION: No evidence for malignancy. Findings compatible with sebaceous cyst at the 4:00-5:00 position right breast, as detailed above. BI-RADS Category 2: Benign finding(s).
--- OUTSIDE RECORDS SUMMARY | 2024-11-15 08:24 | XMS_ITS | Continuity of Care Document ---
Author Organization [facility] Address [address] [facility] [address] [place] [address] Phone Care Team Providers Care Nail Specialist Name Role Phone Yomi Zamora MD Unavailable Unavailable Medications Medication Instructions Dosage Effective Dates (start - stop) Status Comments Zanaflex 4 mg tablet take 1 tablet by or al route every night at bedtime - Active Advance Directives Directive Yes / No Effective Date File Name No Information Encounters Encounter Description Practice Location Reason(s) For Visit Diagnoses Date Provider Providers Copied on Encounter [facility], [address], [facility], [phone] [facility] [address] No Information 4 Noah Celaya. [address] [place] [address], [id number] . tel: [phone] [facility], [address] [place] [address], [facility], tel:[phone] [facility] [address] No Information 3 Noah Celaya. [address] [place] [address], [id number] . tel: [phone] Family History Family Member Type Diagnosis Age [...]
--- OUTSIDE RECORDS SUMMARY | 2024-11-15 08:25 | XMS_ITS | Clinical Summary ---
Author Organization [facility] Address [address] [place] [address] Phone Care Team Providers Care Multiple Spindle Screw Machine Operator Name Role Phone Barbara Birch MD Unavailable [...] Comments Blood Pressure 138/79 06/12/2018 9:47 AM FINANCIAL DIRECTOR Pulse 112 06/12/2018 9:47 AM FINANCIAL DIRECTOR Temperature 36.6 C (97.8 F) 06/12/2018 9:47 AM FINANCIAL DIRECTOR Respiratory Rate 16 06/12/2018 9:47 AM FINANCIAL DIRECTOR Oxygen Saturation 99% 06/12/2018 9:47 AM FINANCIAL DIRECTOR Inhaled Oxygen Concentration - - Weight 76.7 kg (169 lb) 06/12/2018 9:47 AM FINANCIAL DIRECTOR Height 165.1 cm (5' 5) 06/12/2018 9:47 AM FINANCIAL DIRECTOR Body Mass Index 28.12 06/12/2018 9:47 AM FINANCIAL DIRECTOR Plan of Treatment Health Maintenance Due Date Last Done Comments Hepatitis C Virus (HCV) Screening 1965 TdaP Immunization 1965 Hepatitis B Immunization (1 of 3 - 19+ 3-dose series) 1986 HPV/Cotest 1997 Cologuard 2012 Immunochemical Fecal Occult Blood 2012 Pneumococcal Immunization (5 0+ years) (1 of 1 - PCV) 2017 Zoster Immunization (1 of 2) 2017 Cervical Cancer Screening (CCS) 09/27/2020 Pap Smear 09/27/2020 09/27/2017 SARS-COV-2 Immunization (3 - season) 2024 03/20/2021, 07/11/2020 Influenza Immunization (#1) 2025 Colonoscopy 04/06/2028 04/06/2018 Colorectal Cancer Screening 04/06/2028 Respiratory Syncytial Virus (RSV) Immunization (Adult) (1 - 1-dose 75+ series) 2042 Mammogram Discontinued 10/24/2017 Human Papillomavirus (HPV) Immunization Aged Out No longer eligible based on patient's age to complete this topic Meningococcal Immunization (ACWY) Aged Out No longer eligible based on patient's age to complete this topic Rotavirus Immunization Aged Out No lo nger eligible based on patient's age to complete this topic Procedures Procedure Name Priority Date/Time Associated Diagnosis Comments LU SCREENING BILATERAL DIGI CHENG W CAD Routine 10/24/2017 PATHOLOGY CYTOLOGY SAMPLE STEAMER Routine 09/27/2017 from Last 3 Months or Most Recently Relevant to Health Maintenance Results * LU SCREENING BILATERAL DIGITAL W CAD (10/24/2017) Anatomical Region Laterality Modality breast Bilateral Mammography us Celena Montana MD IMG MAMMO ORDERABLES Final Res ult * PATHOLOGY CYTOLOGY SAMPLE STEAMER (09/27/2017) Specimen of unknown material (specimen) us Barbara Birch MD PATHOLOGY/CYTOLOGY ORDERABLES Final Result from Last 3 Months or Most Recently Relevant to Health Maintenance Care Teams Multiple Spindle Screw Machine Operator Relationship Specialty Start Date End Date Barbara Birch MD Consulting Physician Obstetrics & Gynecology 06/12/18
== END 2024-11-15 08:16 | disposition home or self-care (01) ==
LOC: ANHIMG 08:23
PROVIDERS: PCP Family Medicine; Visit Provider Obstetrics & Gynecology
DX: N63.0 Unspecified lump in unspecified breast (principal)
CPT/HCPCS: 76642; 77061; 77065; G0279

== ENCOUNTER 2025-01-11 12:45 | Outpatient (CLI) | payer OTHER, SELFPAY ==
--- OUTSIDE RECORDS SUMMARY | 2013-06-12 08:42 | XMS_ITS | Continuity of Care Document ---
Author Organization [facility] Address [address] [facility] [address] [place] [address] Phone Care Team Providers Care Integrated Circuit Ic Layout Designer Name Role Phone Yomi Zamora MD Unavailable Unavailable Medications Medication Instructions Dosage Effective Dates (start - stop) Status Comments Zanaflex 4 mg tablet take 1 tablet by or al route every night at bedtime - Active Advance Directives Directive Yes / No Effective Date File Name No Information Encounters Encounter Description Practice Location Reason(s) For Visit Diagnoses Date Provider Providers Copied on Encounter [facility], [address], [facility], tel:[phone] [facility] B No Information 4 Noah Celaya. [address] [place] [address], [id number] . tel: [phone] [facility], [address] [place] [address], [facility], tel:[phone] [facility] [address] No Information 3 Noah Celaya. [address] [place] [address], [id number] . tel: [phone] Family History Family Member Type Diagnosis Age At Onset No Information Payers Payer name Insurance type Covered green party ID Authoriza tion(s) No Information Social [...]
--- OUTSIDE RECORDS SUMMARY | 2025-01-11 12:59 | XMS_ITS | Clinical Summary ---
Author Organization [facility] Address [address] [place] [address] Phone Care Team Providers Care Roustabout Name Role Phone Barbara Birch MD Unavailable [...] Comments Blood Pressure 138/79 06/12/2018 9:47 AM VASCULAR TECH Pulse 112 06/12/2018 9:47 AM VASCULAR TECH Temperature 36.6 C (97.8 F) 06/12/2018 9:47 AM VASCULAR TECH Respiratory Rate 16 06/12/2018 9:47 AM VASCULAR TECH Oxygen Saturation 99% 06/12/2018 9:47 AM VASCULAR TECH Inhaled Oxygen Concentration - - Weight 76.7 kg (169 lb) 06/12/2018 9:47 AM VASCULAR TECH Height 165.1 cm (5' 5) 06/12/2018 9:47 AM VASCULAR TECH Body Mass Index 28.12 06/12/2018 9:47 AM VASCULAR TECH Plan of Treatment Health Maintenance Due Date [...] Pap Smear 09/27/2020 09/27/2017 Influenza Immunization (#1) 2025 SARS-COV-2 Immunization (3 - season) 2025 03/20/2021, 07/11/2020 Colonoscopy 04/06/2028 04/06/2018 Colorectal Cancer [...] CHENG W CAD Routine 10/24/2017 PATHOLOGY CYTOLOGY HOGSHEAD FILLER Routine 09/27/2017 from Last 3 Months or Most Recently Relevant to Health Maintenance Results * LU SCREENING BILATERAL DIGITAL W CAD (10/24/2017) Anatomical Region Laterality Modality breast Bilateral Mammography us Celena Montana MD IMG MAMMO ORDERABLES Final Res ult * PATHOLOGY CYTOLOGY HOGSHEAD FILLER (09/27/2017) Specimen of unknown material (specimen) us Barbara Birch MD PATHOLOGY/CYTOLOGY ORDERABLES Final Result from Last 3 Months or Most Recently Relevant to Health Maintenance Care Teams Roustabout Relationship Specialty Start Date End Date Barbara Birch MD Consulting Physician Obstetrics & Gynecology 06/12/18
[2025-01-11 14:11] LABS: Alanine Aminotransferase 23 U/L (6-35); Albumin Level 4.2 g/dL (3.5-5.1); Alkaline Phosphatase 123 U/L (38-126); Aspartate Amino Transferase 27 U/L (14-36); Bilirubin,Total 0.4 mg/dL (0.2-1.3); Total Protein 7.5 g/dL (6.3-8.2)
[2025-01-11 14:47] LABS: Thyroid Stimulating Hormone 1.690 uIU/mL (0.465-4.680)
== END 2025-01-11 12:46 | disposition home or self-care (01) ==
LOC: ANHSURGERY 12:52
PROVIDERS: PCP Family Medicine; Visit Provider Obstetrics & Gynecology
DX: Z01.818 Encounter for other preprocedural examination (principal); N87.1 Moderate cervical dysplasia
CPT/HCPCS: 36415; 80076; 84436; 84443; 86850; 86900; 86901

== ENCOUNTER 2025-01-16 00:34 | Day surgery (SDC) | payer OTHER, SELFPAY ==
--- OUTSIDE RECORDS SUMMARY | 2013-06-12 08:42 | XMS_ITS | Continuity of Care Document ---
Author Organization [facility] Address [address] [facility] [address] [place] [address] Phone Care Team Providers Care Parallel Computing Software Engineer Name Role Phone Yomi Zamora MD Unavailable Unavailable Medications Medication Instructions Dosage Effective Dates (start - stop) Status Comments Zanaflex 4 mg tablet take 1 tablet by or al route every night at bedtime - Active Advance Directives Directive Yes / No Effective Date File Name No Information Encounters Encounter Description Practice Location Reason(s) For Visit Diagnoses Date Provider Providers Copied on Encounter [facility], [address], [facility], tel:[phone] [facility] B No Information 4 Noah Celaya. [address] [place] [address], [id number] . tel: [phone] [facility], [address] [place] [address], [facility], tel:[phone] [facility] [address] No Information 3 Noah Celaya. [address] [place] [address], [id number] . tel: [phone] Family History Family Member Type Diagnosis Age At Onset No Information Payers Payer name Insurance type Covered constitution party ID Authoriza tion(s) No Information Social History Type Description Quantity Date Captured Comments Sex Female Smoking Status No Information Chief Complaint And Reason For Visit No Information Reason For Referral Reason For Referral No Information History Of Present Illness Encounter Date Complaint History Of Prese nt Illness No Information Functional Status Date Functional Assessmen t No Information Instructions Date Instruction Additional Infor mation No Information Assessments Type Assessment Date No Information Patient Care Teams Name Effective Dates (start - stop) Status Members No Information
[2025-01-09 12:53] VITALS: BMI 30.4
--- NOTE | 2025-01-09 13:03 | SUR.PREOP ---
Report to the Outpatient Waiting Room, entrance under the green pavilion located off [facility], at time 0600 on date 01/16/25. Planned Procedure Time: 0730.? Time changes happen often and if your time is changed the preop area will call you the afternoon before. - You and your visitor will be asked to self-screen and do not enter if you have any COVID symptoms. Please call surgeon if you need to reschedule. - A mask is optional within the hospital at this time. Patients may have clear liquids (water, carbonated beverages, clear teas, apple juice) until 3 hours prior to surgery with a maximum of 20 ounces. - No food from midnight until time of surgery and no smoking, or chewing tobacco (or any form of nicotine). No chewing gum, candy or mints. - Infants may have breast milk until 4 hours before surgery, formula 6 hours prior to surgery. - Children will be allowed to drink immediately following surgery.? If applicable, please bring a bottle or sippy cup to assist with drinking. Juice, water, soda, and popsicles are readily available.? For infants on formula, please bring formula the day of surgery.? Pacifiers are allowed. Take only the following medications with a SIP of water on the morning of surgery: __levothyroxine___ DO NOT STOP ANY OF YOUR OTHER PRESCRIPTION MEDICATIONS PRIOR TO SURGERY EXCEPT THE FOLLOWING Hold all vitamins and supplements for 3 days per anesthesiologist. Medications to discontinue per physician _hold ibuprofen [address] Franklin, hold all vitamins and supplements 3 days prior to procedure__ Date to take last dose Please no make-up, nail tamazight, hairspray, perfume, deodorant, or body powder the day of surgery.? No jewelry (including any body piercings) or valuables the day of surgery, leave them at home.? Please take a shower or bath the night before, or the morning of, surgery with an antibacterial soap.? Wear comfortable, loose fitting clothing.? Children are encouraged to wear pajamas. - Jewelry must be removed prior to entering the operating room.? Rings and piercings that are not removed may be cut off. - The hospital will not accept responsibility for valuables.? - Please leave all valuables, including medications, at home the day of surgery. If you are going home after surgery, a licensed sulky driver must drive you home.? - NO public transportation without another adult if you receive anesthesia. - We recommend that an adult stay with you for 24 hours following discharge. - We also recommend that you do not drive, make important decision, drink alcoholic beverages, or take any drugs that were not prescribed by your health care provider for at least 24 hours after your discharge time. For Pediatric surgeries, we recommend two adults accompany the child home. Follow any additional instructions given to you from your surgeon. Telephone instructions given to _patient_and asked if any additional questions and then verbalized understanding. Patient advised to call surgeon office or pre surgery nurse liaison [phone] if any additional questions.
[2025-01-16] VITALS (12 sets, daily range): BP systolic 94–126; BP diastolic 54–78; PULSE 57–87; RESP 12–18; TEMP 36.2–36.9; O2SAT 96–99
--- OUTSIDE RECORDS SUMMARY | 2025-01-16 00:37 | XMS_ITS | Clinical Summary ---
Author Organization [facility] Address [address] [place] [address] Phone Care Team Providers Care Lens Inspector Name Role Phone Barbara Birch MD Unavailable [...] Comments Blood Pressure 138/79 06/12/2018 9:47 AM REHABILITATION COORDINATOR Pulse 112 06/12/2018 9:47 AM REHABILITATION COORDINATOR Temperature 36.6 C (97.8 F) 06/12/2018 9:47 AM REHABILITATION COORDINATOR Respiratory Rate 16 06/12/2018 9:47 AM REHABILITATION COORDINATOR Oxygen Saturation 99% 06/12/2018 9:47 AM REHABILITATION COORDINATOR Inhaled Oxygen Concentration - - Weight 76.7 kg (169 lb) 06/12/2018 9:47 AM REHABILITATION COORDINATOR Height 165.1 cm (5' 5) 06/12/2018 9:47 AM REHABILITATION COORDINATOR Body Mass Index 28.12 06/12/2018 9:47 AM REHABILITATION COORDINATOR Plan of Treatment Health Maintenance Due Date [...] CHENG W CAD Routine 10/24/2017 PATHOLOGY CYTOLOGY MEDICAL BILL PROCESSOR Routine 09/27/2017 from Last 3 Months or Most Recently Relevant to Health Maintenance Results * LU SCREENING BILATERAL DIGITAL W CAD (10/24/2017) Anatomical Region Laterality Modality breast Bilateral Mammography us Celena Montana MD IMG MAMMO ORDERABLES Final Res ult * PATHOLOGY CYTOLOGY MEDICAL BILL PROCESSOR (09/27/2017) Specimen of unknown material (specimen) us Barbara Birch MD PATHOLOGY/CYTOLOGY ORDERABLES Final Result from Last 3 Months or Most Recently Relevant to Health Maintenance Care Teams Lens Inspector Relationship Specialty Start Date End Date Barbara Birch MD Consulting Physician Obstetrics & Gynecology 06/12/18
[2025-01-16] MEDS: LACTATED RINGERS 1,000 ML 30 ML IV CONT ×2 (06:30→09:48)
[2025-01-16] MEDS: KETOROLAC 15 MG/ML VIAL (*BKC) IV PUSH (06:35)
--- NOTE | 2025-01-16 07:21 | WPDHPUPDATE1 ---
History and Physical Update Update Date/Time: 01/16/25 07:21 History and Physical has been reviewed, including an updated exam of the patient. There are NO changes in the patient's condition. Risks, benefits, and alternatives have been discussed and questions answered. Patient agrees to proceed with procedure.
--- NOTE | 2025-01-16 07:27 | WPDANESEPPF ---
Anes - Initial Pre Proc Eval Procedure: Operation Date: 01/16/25 07:30 Proposed Procedures p Robotic Laparoscopic Assisted Total Vaginal Hysterectomy with Bilateral Salpingectomy/Oophorectomy - Prashant Franklin MD Date/Time: 01/16/25 07:27 Surgeon: Prashant Franklin MD Pre Op Diagnosis: high grade dysplasia Patient Data Age: 59 Gender: F Height: 1.6 m Weight: 80 kg Last Vital Signs Temp 97.5 F L 01/16/25 06:30 Pulse 77 01/16/25 06:30 Resp 16 01/16/25 06:30 BP 126/78 01/16/25 06:30 Pulse Ox 99 01/16/25 06:30 O2 Del Method Room Air 01/16/25 06:30 Allergies Allergy/AdvReac Type Severity Reaction Status Date / Time grass pollen Allergy Mild Unknown Verified 01/09/25 12:52 mold Allergy Mild Unknown Verified 01/09/25 12:52 Home Medications ?Medication ?Instructions ?Recorded ?Confirmed ?Type cetirizine 10 mg capsule 10 mg PO DAILY 10/22/19 01/16/25 History ibuprofen 200 mg capsule 200 mg PO Q6H PRN pain 11/27/20 01/16/25 History levothyroxine 50 mcg tablet 50 mcg PO DAILY #90 tabs 08/03/24 01/16/25 Rx fluconazole 150 mg tablet 150 mg PO ONCE #1 tablet 11/06/24 01/16/25 Rx scopolamine base 1 mg over 3 days 1 patch transdermal ONCE #1 ea 12/25/24 01/16/25 Rx transdermal patch cranberry 500 mg capsule 500 mg PO DAILY 01/09/25 01/16/25 History omega 8-gcz-lig-fish oil 60 mg-90 1 cap PO DAILY 01/09/25 01/16/25 History mg-500 mg capsule (Fish Oil) Patient hx anesthesia problems: none Family hx anesthesia problems: none Results Review: All pre-operative results and documents have been reviewed as part of the pre-operative evaluation. [facility] Past Medical History Medical History Hot flashes due to menopause Thyroid disorder Human papilloma virus (HPV) infection Impingement syndrome of left shoulder Rotator cuff tendonitis Left shoulder pain Abnormal mammogram of right breast Hypokalemia Frequent UTI Hyperlipidemia Hepatic steatosis Right cervical radiculopathy Family hx of colon cancer Allergy-induced asthma Squamous cell carcinoma of lower back Migraine Menopause syndrome GERD (gastroesophageal reflux disease) Allergic rhinitis Surgical History Surgical History History of wisdom tooth extraction History of dilatation and curettage History of colposcopy History of (~1994) History of tonsillectomy (~1982) Family History Family History Mother Carcinoma of colon Father CHF (congestive heart failure) Hypertension Father Hypertension Mother Carcinoma of colon Sibling Family history of malignant neoplasm of kidney Other Cerebrovascular accident Family hx of colon cancer Heart disease Social History Social History Smoking status: Former smoker Tobacco type: cigarettes Second hand tobacco smoke exposure: No Smoking end date: 05/09/91 Alcohol intake: current Alcohol use details: Rarely Substance use: never Substance use type: does not use Lack of Transportation: No Lack of Food: Never True Current Housing: I Have Housing Concerned About Future Housing: No Difficulty Paying Gas/Electric Bills: No Difficulty Paying for Meds: No Currently Unemployed: No Education: Associate Degree Difficulty w/ Childcare or Family Care: No Living arrangements: with family Occupation/Education: occupation Gender identity (if verbalized by the patient): Female Sexual Orientation (if Verbalized by the Patient): Straight or Heterosexual Spiritual care concerns: No Agree to blood products: Yes Anes - Eval Final PreProcedure Day of Procedure 01/16/25 07:27 Patient weight: obese Heart: regular rate and rhythm Lungs: clear to auscultation Airway: Mallampati scale class II Neurological: alert and oriented Last oral intake: >/= 8 hours ASA classification: III Emergent: no Anesthetic plan: proceed Anesthesia type and monitoring: general ETT and standard monitoring Results Review: All pre-operative results and documents have been reviewed as part of the pre-operative evaluation. Informed Consent: The patient's anesthetic plan and its attendant risks and benefits were discussed with the patient/family/POA. Questions were solicited and answers provided to the satisfaction of the patient/family/POA.
[2025-01-16] MEDS: ceFAZolin 2 GM in SODIUM CHLORIDE 0.9% IV 50 ML 100 ML IVPB (07:34)
[2025-01-16] MEDS: BUPivacaine HCL 0.5% 10 ML AMP 30 ML INFILTRATE (08:28)
[2025-01-16] MEDS: metroNIDAZOLE 500 MG/ISO 100ML 500 MG/100 ML BAG 100 MG IVPB (08:43)
--- NOTE | 2025-01-16 09:13 | S_PTH ---
PATIENT: Suzan De Los Santos LOC: [facility] U#:[id number] AGE/SX: 59/F ROOM: RE01/16/[address]: Prashant Franklin MD : 1965 BED: DIS: 01/17/2025 SPEC #: [id number] RECD: 01/16/25 10:19 STATUS: MACHO REQ #: [id number] AVRIL: 01/16/25 09:[address]: Prashant Franklin DEPT: [facility] Surgical RECD BY: Vijaya Molina ENTERED: 01/16/25 10:19 SP TYPE: Surgical OTHR DR: Vicki Gutierrez MD Tissues: A - Uterus Procedures: Hematoxylin and Eosin Stain Gross and Microscopic Level 5
--- NOTE | 2025-01-16 09:27 | P.OP_ITS ---
Procedure Note - Detailed Date of Procedure 01/16/25 Pre-op Diagnosis high grade dysplasia Post-op Diagnosis Same Procedure Performed Laparoscopic robotic assisted total vaginal hysterectomy with bilateral salpingo-oophorectomy Surgeon Prashant Franklin MD [employer] Merchand[employer] Jim Mohan Anesthesia General Indications DANIKA 2-3 on cervical biopsy patient has had dysplasia in the past though this is recurrent she refused LEEP procedure she requested definitive treatment because she will not get any other colposcopies if recommended in future because she does not tolerate the colposcopy procedure well. Findings normal uterus fallopian tubes and ovaries. Description of Procedure After informed consent was obtained she was taken to the operating room and general endotracheal anesthesia was administered. She was placed in low lithotomy position. An exam under anesthesia was performed. No abnormalities palpated. She was and prepped and draped in sterile fashion. Foster catheter placed in bladder. Attention was turned to the vagina speculum was inserted. Single-tooth tenaculum placed on anterior lip of the cervix the uterus sounded to 10 cm. The cervix was dilated to a 8 Loving dilator. A size 10 uterine manipulator was inserted and secured. A size 3.0 colp cup was secured in the vagina. Then attention was turned to the abdomen 0.5% marcaine injected subcutaneously 2 cm above umbilicus. An incision was made horizontal 2 cm above the umbilicus. A Veress needle was inserted. Confirmation into the abdomen with normal peritoneal pressures. she was placed in Trendelenburg position. The robotic port was inserted under laparoscopic visualization. A Pneumoperitoneum of 15 mm per mercury was obtained. No abdominal or pelvic adhesions noted. A small incision was made approximately 6 cm lateral to the port on the left and right side. A size 8mm robotic port was inserted under laparoscopic visualization at both sides. An incision was made superior medial to the left incisional and 10 mm psychological assistant port inserted under laparoscopic visualization. Marcaine injected subcutaneously prior to each incision. She did have significant bleeding from subcutaneous tissue on the right side which required cauterization with Bovie which did improve the bleeding. Attention was turned to the surgery console. The right round ligament was ligated and the anterior leaf of the broad ligament was dissected anteriorly. The right side of the bladder was dissected from the lower uterine segment and upper cervix. The right infundibular pelvic ligament was ligated. The ascending uterine vessels on the right were ligated. The uterine vessels were ligated. Attention was turned to the left round ligament which was ligated and the anterior leaf of the broad ligament was dissected anteriorly. The rest of the vesicouterine peritoneum was dissected off of the uterus. Once the bladder was dissected below the colp cup then the left infundibulopelvic ligament was ligated and the fallopian tube and ovary were ligated from the broad ligament. The ascending vessels were ligated. The uterine vessels were ligated. An incision was made anterior colpotomy incision was made and this was carried around until the cervix was removed from the vagina. The uterus and cervix were removed through the vagina. The vaginal cuff was closed in a running fashion with 0 V lock suture x 2. Hemostasis was noted. The pelvis was irrigated. Hemostasis noted. Hemoderm was applied in the pelvis. The patient was taken out of Trendelenburg position. The pneumoperitoneum was released and the ports were removed. The skin incisions were closed with 4 O Vicryl and Dermabond. The patient was extubated in operating room. The sponge count was correct x2. Patient tolerated procedure well and was taken to recovery in stable condition. Estimated Blood Loss 20 Drains No Packing No Pathology Yes (uterus and cervix and right and left fallopian tube) Complications No immediate complications Condition Stable Disposition PACU [facility] Billing Surgery - Charge Forward: Surgery Billing
[2025-01-16] MEDS: fentaNYL CITRATE INJ (*CRX) 100 MCG/2 ML VIAL 25 MCG IV PUSH ×3 (10:06→10:21)
--- NOTE | 2025-01-16 11:17 | OBPPTRN ---
Patient transferred to post room #289 via bed. Support person- spouse present. Oriented to unit, room, information board, rooming in, admission packet and security measures. Patient verbalizes understanding.
[2025-01-16] MEDS: DEXTROSE 5%/0.45% SOD CHL 1,000 ML 125 ML IV CONT (11:37)
[2025-01-16] MEDS: KETOROLAC 30 MG/ML VIAL (*BKC) IV PUSH ×2 (12:12→17:51)
[2025-01-16] MEDS: SIMETHICONE 80 MG TAB.CHEW PO ×2 (12:13→17:05)
--- NOTE | 2025-01-16 14:23 | PC.NURSE ---
6112- pt requesting catheter be removed- educated pt that we will first ambulate and ensure pain is adequately controlled. MD conley'victor m smith catheter removal
[2025-01-16] MEDS: traMADol HCL (*CRX) 50 MG TABLET PO (17:04)
[2025-01-16] MEDS: DOCUSATE SODIUM 100 MG CAPSULE PO (17:05)
[2025-01-16] MEDS: oxyCODONE HCL (*CRX) 5 MG TAB IR 10 MG PO (20:00)
[2025-01-17 03:55] VITALS: BP 113/71; PULSE 92; RESP 16; TEMP 37.1; O2SAT 96
[2025-01-17] MEDS: traMADol HCL (*CRX) 50 MG TABLET PO (04:04)
[2025-01-17] MEDS: IBUPROFEN 600 MG TABLET PO (05:55)
[2025-01-17] MEDS: LEVOTHYROXINE SODIUM 50 MCG TABLET PO (05:55)
[2025-01-17 07:30] VITALS: BP 122/74; PULSE 79; RESP 20; TEMP 36.9; O2SAT 97
--- NOTE | 2025-01-17 07:32 | WPDANESPN ---
Anes - Prog Note Post-Op Date/Time: 01/17/25 07:32 Cardiovascular status: normal Respiratory status: normal Airway patency: baseline Mental status: baseline Post-Op hydration status: normal Vital Signs: Last Vital Signs Temp 37.1 C 01/17/25 03:55 Pulse 92 01/17/25 03:55 Resp 16 01/17/25 03:55 BP 113/71 01/17/25 03:55 Pulse Ox 96 01/17/25 03:55 O2 Del Method Room Air 01/17/25 03:55 O2 Flow Rate 8 01/16/25 10:00 Pain Score (VAS): 2 I/O: Intake & Output 01/16/25 01/16/25 01/17/25 15:59 23:59 07:59 Intake Total 400 780 Output Total 730 740 275 Balance -330 -70 -275 Post-procedural complaints: none Patient Feedback: Patient satisfied with anesthetic care.
[2025-01-17] MEDS: DOCUSATE SODIUM 100 MG CAPSULE PO (09:53)
[2025-01-17] MEDS: LORATADINE 10 MG TABLET PO (09:53)
[2025-01-17] MEDS: SIMETHICONE 80 MG TAB.CHEW PO (09:53)
[2025-01-17] MEDS: oxyCODONE HCL (*CRX) 5 MG TAB IR PO (09:54)
== END 2025-01-17 10:07 | disposition home or self-care (01) ==
LOC: ANHSURGERY 05:58 → ANHOB2 16:59
PROVIDERS: PCP Family Medicine; Visit Provider Obstetrics & Gynecology
PROC: (CPT 58552; principal; 2025-01-16 07:30)
DX: N72 Inflammatory disease of cervix uteri (principal); N88.8 Other specified noninflammatory disorders of cervix uteri; N80.03 Adenomyosis of the uterus; N83.8 Other noninflammatory disorders of ovary, fallopian tube and broad ligament; N83.312 Acquired atrophy of left ovary; N83.311 Acquired atrophy of right ovary; G89.18 Other acute postprocedural pain; E78.5 Hyperlipidemia, unspecified; J45.909 Unspecified asthma, uncomplicated; K21.9 Gastro-esophageal reflux disease without esophagitis; E07.9 Disorder of thyroid, unspecified; E87.6 Hypokalemia; E66.9 Obesity, unspecified; Z68.31 Body mass index [BMI] 31.0-31.9, adult; Z79.1 Long term (current) use of non-steroidal anti-inflammatories (NSAID); Z98.890 Other specified postprocedural states; Z87.891 Personal history of nicotine dependence; Z85.828 Personal history of other malignant neoplasm of skin; Z80.0 Family history of malignant neoplasm of digestive organs; Z80.51 Family history of malignant neoplasm of kidney; Z82.49 Family history of ischemic heart disease and other diseases of the circulatory system
CPT/HCPCS: 58552; S2900; 88307; 99199; J0690; A9270; J1171; J1836; J1885; J2003; J2250; J2405; J2704; J3010; J7120